=== PATIENT | male | born 1990 | race American Indian/Alaskan Native ===

== ENCOUNTER 2016-12-31 22:13 | Emergency (ER) | payer SELFPAY ==
[2016-12-31 22:35] VITALS: BP 124/84
[2016-12-31 22:56] LABS: Basophils % (Auto) 0.7 % (0.0-1.8); Eosinophils % (Auto) 1.2 % (0.0-4.3); Hematocrit 41.6 % (35.5-45.6); Hemoglobin 13.7 gm/dl (11.8-15.2); Mean Corpuscular HGB Conc 33 % (32-34); Mean Corpuscular Hemoglobin 30 pg (28-32); Mean Corpuscular Volume 92 fl (84-94); Platelet Count 187 K/mm3 (140-440); Red Blood Count 4.52 M/mm3 (3.65-5.03); Red Cell Distribution Width 13.2 % (13.2-15.2); White Blood Count 7.9 K/mm3 (4.5-11.0)
[2016-12-31 23:17] LABS: Anion Gap 17 mmol/L; BUN/Creatinine Ratio 13.33; Blood Urea Nitrogen 12 mg/dL (9-20); Calcium 8.7 mg/dL (8.4-10.2); Carbon Dioxide 24 mmol/L (22-30); Chloride 98.3 mmol/L (98-107); Glucose 85 mg/dL (75-100); Potassium 4.1 mmol/L (3.6-5.0); Sodium 135 mmol/L (137-145)
--- NOTE | 2017-01-02 20:24 | ED Elopement Review ---
ED Pt Elopement review - Results review Lab results: Laboratory Tests 12/31/16 12/31/16 01/01/17 22:48 22:48 02:14 WBC 7.9 RBC 4.52 Hgb 13.7 Hct 41.6 MCV 92 MCH 30 MCHC 33 RDW 13.2 Plt Count 187 Lymph % (Auto) 44.9 H [place] % (Auto) 6.7 Eos % (Auto) 1.2 Baso % (Auto) 0.7 Lymph # 3.6 [place] # 0.5 Eos # 0.1 Baso # 0.1 Seg Neutrophils % 46.5 Seg Neutrophils # 3.7 Sodium 135 L Potassium 4.1 Chloride 98.3 Carbon Dioxide 24 Anion Gap 17 BUN 12 Creatinine 0.9 Estimated GFR > 60 BUN/Creatinine Ratio 13.33 Glucose 85 Calcium 8.7 Troponin T < 0.010 < 0.010 - Call Back decision Pt Call Back Decision: Pt to F/U with PMD (patient is to follow with primary care provider mild tachycardic at 118.)
== END 2017-01-01 01:21 | disposition left against medical advice (07) ==
LOC: ED 22:13
DX: R07.9 Chest pain, unspecified (principal); R06.02 Shortness of breath; R68.83 Chills (without fever); Z53.21 Procedure and treatment not carried out due to patient leaving prior to being seen by health care provider
CPT/HCPCS: 36415; 80048; 84484; 85025; 93005; 93010